=== PATIENT | female | born 1985 | race African-American/Black ===

== ENCOUNTER 2016-12-29 20:46 | Emergency (ER) | payer MEDICAID ==
[~2016-12-29] VITALS: Ht 172.7 cm; Wt 102.0 kg
[~2016-12-29 20:46] MED LIST: METHI10 PO; PROP20 PO
[2016-12-29 20:48] VITALS: BP 165/92; PULSE 98; RESP 16; TEMP 99; O2SAT 100
[2016-12-29] MEDS ORDERED: HYDR-3583 PO (21:08)
[2016-12-29 22:40] LABS: AUTOMATED NEUTROPHIL # 4.6 TH/MM3 (1.8-7.7); BASOPHIL % 0.2 % (0.0-2.0); EOSINOPHIL # 0.2 TH/MM3 (0-0.4); EOSINOPHIL % 1.8 % (0.0-4.0); HEMO FLAGS DIFF FINAL; LYMPH % 40.5 % (9.0-44.0); LYMPHOCYTE # 4.1 TH/MM3 (1.0-4.8); MEAN CORPUSCULAR HEMOGLOBIN 26.4 PG (27.0-34.0); MEAN CORPUSCULAR HGB CONC 33.8 % (32.0-36.0); MONO % 11.6 % (0.0-8.0); NEUT % 45.9 % (16.0-70.0); PLATELET COUNT 266 TH/MM3 (150-450); RED BLOOD COUNT 4.49 MIL/MM3 (4.00-5.30); WHITE BLOOD COUNT 10.1 TH/MM3 (4.0-11.0)
--- NOTE | 2016-12-29 22:47 | PD ---
HPI Chief Complaint: Back/ Neck Pain or Injury Time Seen by Provider: 21:34 Travel History International Travel<30 days: No Contact w/Intl Traveler<30days: No Traveled to known affect area: No History of Present Illness HPI Patient is a 31-year-old female who presents to emergency room for evaluation of thyroid problems. Patient reports that she was diagnosed with Graves' disease in May 2016. Patient does follow-up with for this disease and reports that she has been compliant with her thryoid medications. Reports that "my neck felt funny today so I just wanted to get checked." Patient reports that she is frustrated with her physician as she "just want my thyroid out." Patient denies any fevers or chills, denies chest pain or shortness of breath. Patient with no other complaints. PFSH Past Medical History Cardiovascular Problems: No Diminished Hearing: No Genitourinary: No Headaches: Yes Hiatal Hernia: Yes Medical other: Yes (THYROID STORM) Musculoskeletal: No Neurologic: Yes Reproductive: Yes (OVARIAN CYSTS) Respiratory: No Immunizations Current: Yes ?: Not : 4 Para: 5 Miscarriage: 0 : 0 Ovarian Cysts: Yes (BILATERAL/ ovaries removed) Past Surgical History Gynecologic Surgery: Yes (RIGHT & LEFT OVARIAN CYST) Other Surgery: Yes Social History Alcohol Use: No Tobacco Use: No Substance Use: No Allergies-Medications (Allergen,Severity, Reaction): Coded Allergies: No Known Allergies (Verified , 12/29/16) Reported Meds & Prescriptions Reported Meds & Active Scripts Active Reported Hydrocodone-Acetaminophen 10-325 mg Tab 1 Tab PO Q4H PRN Review of Systems General / Constitutional: No: Fever Eyes: No: Visual changes HENT: No: Headaches Cardiovascular: No: Chest Pain or Discomfort Respiratory: No: Shortness of Breath Gastrointestinal: No: Abdominal Pain Genitourinary: No: Dysuria Musculoskeletal: No: Pain Skin: No Rash Neurologic: No: Weakness Psychiatric: No: Depression Endocrine: No: Polydipsia Hematologic/Lymphatic: No: Easy Bruising Physical Exam Narrative GENERAL: nad, nontoxic SKIN: Focused skin assessment warm/dry. HEAD: Atraumatic. Normocephalic. EYES: Pupils equal and round. No scleral icterus. No injection or drainage. ENT: No nasal bleeding or discharge. Mucous membranes pink and moist. NECK: Trachea midline. No JVD. patient with goiter to neck CARDIOVASCULAR: Regular rate and rhythm. No murmur appreciated. RESPIRATORY: No accessory muscle use. Clear to auscultation. Breath sounds equal bilaterally. GASTROINTESTINAL: Abdomen soft, non-tender, nondistended. Hepatic and splenic margins not palpable. MUSCULOSKELETAL: No obvious deformities. No clubbing. No cyanosis. No edema. NEUROLOGICAL: Awake and alert. No obvious cranial nerve deficits. Motor grossly within normal limits. Normal speech. PSYCHIATRIC: Appropriate mood and affect; insight and judgment normal. Data Data Last Documented VS Vital Signs Date Time Temp Pulse Resp B/P Pulse Ox O2 Delivery O2 Flow Rate FiO2 12/29/16 20:48 99.0 98 16 165/92 100 Room Air Orders Complete Blood Count With Diff (12/29/16 21:34) Comprehensive Metabolic Panel (12/29/16 21:34) Iv Access Insert/Monitor (12/29/16 21:34) Ed Urine Pregnancytest Poc (12/29/16 21:34) Thyroid Stimulating Hormone (12/29/16 21:34) Mandatory Outpatient Referral (12/30/16 00:06) Labs Laboratory Tests Test 12/29/16 21:40 White Blood Count 10.1 TH/MM3 Red Blood Count 4.49 MIL/MM3 Hemoglobin 11.8 GM/DL Hematocrit 35.0 % Mean Corpuscular Volume 78.0 FL Mean Corpuscular Hemoglobin 26.4 PG Mean Corpuscular Hemoglobin 33.8 % Concent Red Cell Distribution Width 13.0 % Platelet Count 266 TH/MM3 Mean Platelet Volume 7.9 FL Neutrophils (%) (Auto) 45.9 % Lymphocytes (%) (Auto) 40.5 % Monocytes (%) (Auto) 11.6 % Eosinophils (%) (Auto) 1.8 % Basophils (%) (Auto) 0.2 % Neutrophils # (Auto) 4.6 TH/MM3 Lymphocytes # (Auto) 4.1 TH/MM3 Monocytes # (Auto) 1.2 TH/MM3 Eosinophils # (Auto) 0.2 TH/MM3 Basophils # (Auto) 0.0 TH/MM3 CBC Comment DIFF FINAL Differential Comment Sodium Level 141 MEQ/L Potassium Level 3.7 MEQ/L Chloride Level 105 MEQ/L Carbon Dioxide Level 25.1 MEQ/L Anion Gap 11 MEQ/L Blood Urea Nitrogen 16 MG/DL Creatinine 0.58 MG/DL Estimat Glomerular Filtration 149 ML/MIN Rate Random Glucose 94 MG/DL Calcium Level 9.3 MG/DL Total Bilirubin 0.2 MG/DL Aspartate Amino Transf 25 U/L (AST/SGOT) Alanine Aminotransferase 35 U/L (ALT/SGPT) Alkaline Phosphatase 166 U/L Total Protein 8.3 GM/DL Albumin 3.6 GM/DL Thyroid Stimulating Hormone LESS THAN 3rd Gen 0.005 uIU/ML MDM Medical Decision Making Medical Screen Exam Complete: Yes Emergency Medical Condition: Yes Interpretation(s) Vital Signs Date Time Temp Pulse Resp B/P Pulse Ox O2 Delivery O2 Flow Rate FiO2 12/29/16 20:48 99.0 98 16 165/92 100 Room Air Differential Diagnosis grave's disease, abnormal thyroid, hypothyroidism, thyroid storm Narrative Course Patient is a 31-year-old female who presents to emergency room for evaluation of abnormal thyroid. Patient reports that she suffers from Graves' disease, reports that her neck feels full and then normal. Patient here for evaluation of thyroid. Labs including TSH ordered Laboratory Tests Test 12/29/16 21:40 White Blood Count 10.1 TH/MM3 (4.0-11.0) Red Blood Count 4.49 MIL/MM3 (4.00-5.30) Hemoglobin 11.8 GM/DL (11.6-15.3) Hematocrit 35.0 % (35.0-46.0) Mean Corpuscular Volume 78.0 FL (80.0-100.0) Mean Corpuscular Hemoglobin 26.4 PG (27.0-34.0) Mean Corpuscular Hemoglobin 33.8 % Concent (32.0-36.0) Red Cell Distribution Width 13.0 % (11.6-17.2) Platelet Count 266 TH/MM3 (150-450) Mean Platelet Volume 7.9 FL (7.0-11.0) Neutrophils (%) (Auto) 45.9 % (16.0-70.0) Lymphocytes (%) (Auto) 40.5 % (9.0-44.0) Monocytes (%) (Auto) 11.6 % (0.0-8.0) Eosinophils (%) (Auto) 1.8 % (0.0-4.0) Basophils (%) (Auto) 0.2 % (0.0-2.0) Neutrophils # (Auto) 4.6 TH/MM3 (1.8-7.7) Lymphocytes # (Auto) 4.1 TH/MM3 (1.0-4.8) Monocytes # (Auto) 1.2 TH/MM3 (0-0.9) Eosinophils # (Auto) 0.2 TH/MM3 (0-0.4) Basophils # (Auto) 0.0 TH/MM3 (0-0.2) CBC Comment DIFF FINAL Differential Comment Sodium Level 141 MEQ/L (136-145) Potassium Level 3.7 MEQ/L (3.5-5.1) Chloride Level 105 MEQ/L (98-107) Carbon Dioxide Level 25.1 MEQ/L (21.0-32.0) Anion Gap 11 MEQ/L (5-15) Blood Urea Nitrogen 16 MG/DL (7-18) Creatinine 0.58 MG/DL (0.50-1.00) Estimat Glomerular Filtration 149 ML/MIN Rate (>89) Random Glucose 94 MG/DL (74-106) Calcium Level 9.3 MG/DL (8.5-10.1) Total Bilirubin 0.2 MG/DL (0.2-1.0) Aspartate Amino Transf 25 U/L (15-37) (AST/SGOT) Alanine Aminotransferase 35 U/L (10-53) (ALT/SGPT) Alkaline Phosphatase 166 U/L (45-117) Total Protein 8.3 GM/DL (6.4-8.2) Albumin 3.6 GM/DL (3.4-5.0) Thyroid Stimulating Hormone LESS THAN 3rd Gen 0.005 uIU/ML (0.358-3.740) all labs and studies reviewed with patient in detail. tsh <0.005. pt's labs were reviewed - similar tsh in may. patient does not appear to be in thryoid storm, afebrile, nontoxic appearing, no AMS. patient unable to tell me her dose of tapazole - discussed need for her to follow up with her awning craftsperson as soon as possible as she will need medication adjustjment. She will return to ER as needed Diagnosis Primary Impression: Hyperthyroidism Patient Instructions: General Instructions Additional Instructions: please provide patient with a copy of her lab work at discharge please follow up with awning craftsperson as soon as possible please call your primary care doctor for earliest follow up return to ER as needed or if symptoms worsen or progress Disposition: 01 DISCHARGE HOME Condition: Stable Dionne Israel DO Dec 29, 2016 22:47
[2016-12-29 23:08] LABS: ALT (GPT) 35 U/L (10-53); ANION GAP 11 MEQ/L (5-15); AST (GOT) 25 U/L (15-37); BICARBONATE 25.1 MEQ/L (21.0-32.0); BLOOD UREA NITROGEN 16 MG/DL (7-18); CHLORIDE 105 MEQ/L (98-107); GLOMERULAR FILTRATION RATE 149 ML/MIN (>89); POTASSIUM 3.7 MEQ/L (3.5-5.1); SODIUM (NA) 141 MEQ/L (136-145)
[2016-12-29 23:18] LABS: ALKALINE PHOSPHATASE 166 U/L (45-117); TOTAL BILIRUBIN ADULT 0.2 MG/DL (0.2-1.0)
== END 2016-12-30 00:41 | disposition home or self-care (01) ==
LOC: NEPD 20:46
DX: E05.90 Thyrotoxicosis, unspecified without thyrotoxic crisis or storm (principal)
CPT/HCPCS: 80053; 84443; 84703; 85025; 99283

== ENCOUNTER 2017-05-05 19:02 | Emergency (ER) | payer MEDICAID ==
[~2017-05-05] VITALS: Ht 172.7 cm; Wt 100.0 kg
[~2017-05-05 19:02] MED LIST changes: +HYDR-3583 PO; -METHI10 PO; -PROP20 PO
[2017-05-05 19:04] VITALS: BP 175/96; PULSE 117; RESP 16; TEMP 98.9; O2SAT 100
--- NOTE | 2017-05-05 19:38 | PD ---
Physical Exam Time Seen by Provider: 19:37 Narrative 31yo F c/o DAVEY. Frontal. +vomited x 1. HX of DAVEY. Says she "always has davey's." Denies focal deficits or weakness. Patient seen in triage. VS reviewed. Patient awaiting bed placement. Data Data Last Documented VS Vital Signs Date Time Temp Pulse Resp B/P (MAP) Pulse Ox O2 Delivery O2 Flow Rate FiO2 05/05/17 19:04 98.9 117 16 175/96 (122) 100 Room Air MDM Supervised Visit with VEI: Kandis Molina May 05, 2017 19:38
[2017-05-05] MEDS ORDERED: PROP10TA6 PO (20:22)
[2017-05-05 20:23] VITALS: BP 168/74; PULSE 104; RESP 18; O2SAT 100
--- NOTE | 2017-05-05 21:06 | PD ---
HPI Chief Complaint: Headache Time Seen by Provider: 20:57 Travel History International Travel<30 days: No Contact w/Intl Traveler<30days: No Traveled to known affect area: No History of Present Illness HPI Patient is a 31-year-old female with a history of Graves' disease presents emergency department for evaluation of headache right-sided neck pain some chest palpitations. Patient states been going on for some time but worsened over the past few days. She states she's never had any heart problems before, denies any history of blood clots. Denies any contraceptive use. States she's had a history of migraines before but this feels somewhat different. Endorses some mild nausea without vomiting, denies any blurred vision to me, denies any focalized weakness. Symptoms are severe and worsening. PFSH Past Medical History Cardiovascular Problems: Yes (palpitations) Diminished Hearing: No Gastrointestinal Disorders: No Genitourinary: No Headaches: Yes Hiatal Hernia: Yes Musculoskeletal: No Neurologic: Yes Reproductive: Yes (OVARIAN CYSTS) Respiratory: No Immunizations Current: Yes Tetanus Vaccination: < 5 Years Influenza Vaccination: No ?: Unknown LMP: unknown : 4 Para: 5 Miscarriage: 0 : 0 Ovarian Cysts: Yes (BILATERAL/ ovaries removed) Past Surgical History Gynecologic Surgery: Yes (RIGHT & LEFT OVARIAN CYST) Other Surgery: Yes Social History Alcohol Use: No Tobacco Use: No Substance Use: No Allergies-Medications (Allergen,Severity, Reaction): Coded Allergies: No Known Allergies (Verified , 12/29/16) Reported Meds & Prescriptions Reported Meds & Active Scripts Active Reported Propranolol (Propranolol HCl) 10 Mg Tab 0 PO TID Review of Systems Except as stated in HPI: all other systems reviewed are Neg Physical Exam Narrative GENERAL: Well-developed, overweight in no obvious distress. Chewing gum in a stretcher in upright position. Acting on her phone. SKIN: Focused skin assessment warm/dry. HEAD: Atraumatic. Normocephalic. EYES: Pupils equal and round. No scleral icterus. No injection or drainage. ENT: No nasal bleeding or discharge. Mucous membranes pink and moist. NECK: Trachea midline. No JVD. CARDIOVASCULAR: Regular rate and rhythm. No murmur appreciated. No murmurs gallops rubs, RESPIRATORY: No accessory muscle use. Clear to auscultation. Breath sounds equal bilaterally. GASTROINTESTINAL: Abdomen soft, non-tender, nondistended. Hepatic and splenic margins not palpable. MUSCULOSKELETAL: No obvious deformities. No clubbing. No cyanosis. No edema. No midline CT or L-spine tenderness, extremities are atraumatic. NEUROLOGICAL: Awake and alert. Cranial nerves II through XII are grossly intact and nonfocal, 5 out of 5 strength in all 4 extremity's, cerebellar testing negative. PSYCHIATRIC: Appropriate mood and affect; insight and judgment normal. Data Data Last Documented VS Vital Signs Date Time Temp Pulse Resp B/P (MAP) Pulse Ox O2 Delivery O2 Flow Rate FiO2 05/05/17 22:47 96 18 175/99 (124) 100 Room Air 05/05/17 19:04 98.9 Orders Orders Ckmb (Isoenzyme) Profile (05/05/17 21:04) Complete Blood Count With Diff (05/05/17 21:04) Comprehensive Metabolic Panel (05/05/17 21:04) Magnesium (Mg) (05/05/17 21:04) Prothrombin Time / Inr (Pt) (05/05/17 21:04) Act Partial Throm Time (Ptt) (05/05/17 21:04) Troponin I (05/05/17 21:04) Ecg Monitoring (05/05/17 21:04) Iv Access Insert/Monitor (05/05/17 21:04) Oximetry (05/05/17 21:04) Oxygen Administration (05/05/17 21:04) Sodium Chloride 0.9% Flush (Ns Flush) (05/05/17 21:15) Thyroid Stimulating Hormone (05/05/17 21:04) Sodium Chlor 0.9% 1000 Ml Inj (Ns 1000 M (05/05/17 21:15) Ketorolac Inj (Toradol Inj) (05/05/17 21:15) Sumatriptan Inj (Imitrex Inj) (05/05/17 21:15) Ondansetron Inj (Zofran Inj) (05/05/17 22:30) Diphenhydramine Inj (Benadryl Inj) (05/05/17 22:30) Prochlorperazine Inj (Compazine Inj) (05/05/17 22:30) Labs Laboratory Tests Test 05/05/17 21:20 White Blood Count 8.0 TH/MM3 Red Blood Count 4.06 MIL/MM3 Hemoglobin 10.3 GM/DL Hematocrit 31.8 % Mean Corpuscular Volume 78.4 FL Mean Corpuscular Hemoglobin 25.4 PG Mean Corpuscular Hemoglobin Concent 32.4 % Red Cell Distribution Width 12.8 % Platelet Count 221 TH/MM3 Mean Platelet Volume 7.3 FL Neutrophils (%) (Auto) 43.5 % Lymphocytes (%) (Auto) 39.1 % Monocytes (%) (Auto) 12.8 % Eosinophils (%) (Auto) 4.4 % Basophils (%) (Auto) 0.2 % Neutrophils # (Auto) 3.5 TH/MM3 Lymphocytes # (Auto) 3.1 TH/MM3 Monocytes # (Auto) 1.0 TH/MM3 Eosinophils # (Auto) 0.3 TH/MM3 Basophils # (Auto) 0.0 TH/MM3 CBC Comment DIFF FINAL Differential Comment Prothrombin Time 10.7 SEC Prothromb Time International Ratio 1.0 RATIO Activated Partial Thromboplast Time 28.5 SEC Blood Urea Nitrogen 13 MG/DL Creatinine 0.41 MG/DL Random Glucose 110 MG/DL Total Protein 7.1 GM/DL Albumin 3.0 GM/DL Calcium Level 9.0 MG/DL Magnesium Level 1.8 MG/DL Alkaline Phosphatase 152 U/L Aspartate Amino Transf (AST/SGOT) 22 U/L Alanine Aminotransferase (ALT/SGPT) 34 U/L Total Bilirubin 0.2 MG/DL Sodium Level 140 MEQ/L Potassium Level 3.8 MEQ/L Chloride Level 107 MEQ/L Carbon Dioxide Level 26.7 MEQ/L Anion Gap 6 MEQ/L Estimat Glomerular Filtration Rate 222 ML/MIN Total Creatine Kinase 78 U/L Troponin I LESS THAN 0.02 NG/ML Thyroid Stimulating Hormone 3rd Gen LESS THAN 0.005 uIU/ML MDM Medical Decision Making Medical Screen Exam Complete: Yes Emergency Medical Condition: Yes Differential Diagnosis Headache, hyperthyroidism, palpitations, arrhythmia, electro-light abnormality, ACS unlikely, PE unlikely. Narrative Course Patient roomed emergency department, minimally tachycardic responded well to headache medicines as well as fluids. Think she is fairly low risk for pulmonary embolism and her tachycardia came be explained to her thyroid disease. Patient's EKG is nonischemic, troponin negative, TSH is undetectable. This seems to be where she runs. At this time I do not think patient is in thyroid storm, her symptoms could be attribute it to her thyroid disease however there is fair rate control at this time and no indication for inpatient therapy. She is encouraged to continue taking her medicine at home and follow-up with her leases and land supervisor tomorrow by phone. The patient's given pain medicine for her headache which did not significantly relieve her pain and then she had one episode of nonbilious nonbloody emesis in the emergency department, she was given Zofran and Benadryl and Compazine and my second reassessment she is sleeping soundly states her headache is completely resolved and she is feeling well enough to go home. His explained the patient that she needed to have a ride home prior to giving her sedating medications and She does have a ride coming to pick her up. She is stable for discharge. Diagnosis Primary Impression: Headache Additional Impressions: Palpitations Hyperthyroidism Additional Instructions: Call your leases and land supervisor tomorrow. Disposition: 01 DISCHARGE HOME Condition: Stable Go Mary MD May 05, 2017 21:06
[2017-05-05] MEDS ORDERED: SUMAtriptan INJ 6 MG/0.5 ML VIAL SQ ONE (21:15)
[2017-05-05] MEDS ORDERED: SODIUM CHLOR 0.9% 1000 ML INJ 1,000 ML IV ONE (21:15)
[2017-05-05] MEDS ORDERED: KETOROLAC TROMETHAMINE 30 MG/ML (IVP) VIAL IV PUSH ONE (21:15)
[2017-05-05] MEDS ORDERED: SODIUM CHLORIDE 0.9% FLUSH 10 ML FLUSH IVF PRN (21:15)
[2017-05-05 21:31] LABS: AUTOMATED NEUTROPHIL # 3.5 TH/MM3 (1.8-7.7); BASOPHIL % 0.2 % (0.0-2.0); EOSINOPHIL # 0.3 TH/MM3 (0-0.4); EOSINOPHIL % 4.4 % (0.0-4.0); HEMATOCRIT 31.8 % (35.0-46.0); HEMO FLAGS DIFF FINAL; LYMPH % 39.1 % (9.0-44.0); LYMPHOCYTE # 3.1 TH/MM3 (1.0-4.8); MEAN CELL VOLUME 78.4 FL (80.0-100.0); MEAN CORPUSCULAR HEMOGLOBIN 25.4 PG (27.0-34.0); MEAN CORPUSCULAR HGB CONC 32.4 % (32.0-36.0); MONO % 12.8 % (0.0-8.0); NEUT % 43.5 % (16.0-70.0); PLATELET COUNT 221 TH/MM3 (150-450); RED BLOOD COUNT 4.06 MIL/MM3 (4.00-5.30); RED CELL DISTRIBUTION WIDTH 12.8 % (11.6-17.2)
[2017-05-05 21:39] LABS: APTT (PATIENT) 28.5 SEC (24.3-30.1); PROTHROMBIN TIME - PATIENT 10.7 SEC (9.8-11.6)
[2017-05-05 21:57] LABS: ALT (GPT) 34 U/L (10-53); ANION GAP 6 MEQ/L (5-15); AST (GOT) 22 U/L (15-37); BICARBONATE 26.7 MEQ/L (21.0-32.0); BLOOD UREA NITROGEN 13 MG/DL (7-18); CHLORIDE 107 MEQ/L (98-107); GLOMERULAR FILTRATION RATE 222 ML/MIN (>89); MAGNESIUM 1.8 MG/DL (1.5-2.5); POTASSIUM 3.8 MEQ/L (3.5-5.1); SODIUM (NA) 140 MEQ/L (136-145)
[2017-05-05 22:01] LABS: ALKALINE PHOSPHATASE 152 U/L (45-117); TOTAL BILIRUBIN ADULT 0.2 MG/DL (0.2-1.0)
[2017-05-05 22:10] LABS: CREATINE KINASE 78 U/L (26-192)
[2017-05-05] MEDS ORDERED: ONDANSETRON HCL 4 MG/2 ML VIAL IV PUSH ONE (22:30)
[2017-05-05] MEDS ORDERED: diphenhydrAMINE HCL 50 MG/ML VIAL IV PUSH ONE (22:30)
[2017-05-05] MEDS ORDERED: PROCHLORPERAZINE INJ 10 MG/2 ML VIAL IV PUSH ONE (22:30)
[2017-05-05 22:47] VITALS: BP 175/99; PULSE 96; RESP 18; O2SAT 100
--- NOTE | 2017-05-06 17:03 | EKG ---
Date Performed: 05/05/2017 Time Performed: 20:36:30 PTAGE: 31 years EKG: SINUS TACHYCARDIA POSSIBLE LEFT ATRIAL ENLARGEMENT Since previous tracing, no significant c hange noted ABNORMAL RHYTHM ECG PREVIOUS TRACING : 05/25/2016 11.32 DOCTOR: Lara Martin Interpretating Date/Time 05/06/2017 17:01:21
== END 2017-05-05 23:43 | disposition home or self-care (01) ==
LOC: NEPD 19:02
DX: R51 Headache (principal); R00.2 Palpitations; R11.10 Vomiting, unspecified; R00.0 Tachycardia, unspecified; R94.31 Abnormal electrocardiogram [ECG] [EKG]; E05.00 Thyrotoxicosis with diffuse goiter without thyrotoxic crisis or storm; Z79.899 Other long term (current) drug therapy
CPT/HCPCS: 80053; 82550; 83735; 84443; 84484; 85025; 85610; 85730; 93005; 96361; 96372; 96374; 96375; 99284; J0780; J1200; J1885; J2405; J3030; J7030